=== PATIENT | female | born 2000 | race Caucasian/White ===

== ENCOUNTER 2023-03-06 09:35 | Emergency (ER) | payer BC ==
[~2023-03-06] VITALS: Ht 177.8 cm; Wt 75.0 kg
[2023-03-06 11:17] VITALS: TEMP 98.4
[2023-03-06 12:44] VITALS: BP 104/64; PULSE 89; RESP 17; O2SAT 100
== END 2023-03-06 13:50 | disposition home or self-care (01) ==
LOC: ER 09:35
DX: M79.605 Pain in left leg (principal); Z79.899 Other long term (current) drug therapy
CPT/HCPCS: 93971; 99284

== ENCOUNTER 2023-04-10 00:17 | Emergency (ER) | payer BC ==
[~2023-04-10] VITALS: Ht 177.8 cm; Wt 65.9 kg
[2023-04-10 00:54] LABS: HEMATOCRIT 43.1 % (35.0-45.0); HEMOGLOBIN 14.3 g/dl (12.0-16.0); MEAN CORPUSCULAR HEMOGLOBIN 28.3 PG (27.0-31.0); MEAN CORPUSCULAR HGB CONC 33.1 g/dL (33.0-36.5); MEAN CORPUSCULAR VOLUME 85.6 FL (78-98); MEAN PLATELET VOLUME 8.7 FL (7.4-10.4); PLATELET COUNT 258 X10'3 (140-440); RED BLOOD COUNT 5.04 X10'6 (4.20-5.60); RED CELL DISTRIBUTION WIDTH 14.1 % (11.5-14.5); WHITE BLOOD COUNT 8.1 X10'3 (4.5-11.0)
[2023-04-10] MEDS ORDERED: ibuprofen tablet 400 MG TABLET PO ONE (01:10)
[2023-04-10 01:15] LABS: ALANINE AMINOTRANSFERASE 19 U/L (12-78); ALBUMIN 4.5 G/DL (3.4-5.0); ALBUMIN/GLOBULIN RATIO 1.3 (1.1-1.5); ALKALINE PHOSPHATASE 88 IU/L (46-116); ANION GAP 12 (8-16); ASPARTATE AMINO TRANSFERASE 18 U/L (10-37); BILIRUBIN,TOTAL 0.2 MG/DL (0.1-1.0); BLOOD UREA NITROGEN 13 MG/DL (7-18); BUN/CREATININE RATIO 16.9 (10.0-20.0); CALCIUM 9.6 MG/DL (8.5-10.1); CHLORIDE 102 MMOL/L (99-107); CREATININE 0.77 MG/DL (0.40-0.90); GLUCOSE 96 MG/DL (70-104); PRO BRAIN NATRIURETIC PEPTIDE 96 PG/ML (0-125); SODIUM 139 MMOL/L (135-145); TOTAL CARBON DIOXIDE 25.4 MMOL/L (24-32); TOTAL PROTEIN 7.9 G/DL (6.4-8.2); eCRCL 120 ML/MIN; eGFR > 90 ML/MIN
[2023-04-10] MEDS ORDERED: ibuprofen 200mg tablet PO ONE (01:15)
[2023-04-10] MEDS ORDERED: potassium CL 10mEq/100ml bag 100 ML IV SCH (01:25)
[2023-04-10] MEDS ORDERED: potassium Cl 20 mEq SR tablet PO STA (01:25)
[2023-04-10] MEDS ORDERED: normal saline 1000ml 1,000 ML IV ONE (01:25)
[2023-04-10 01:39] LABS: TOTAL CELLS COUNTED 100
[2023-04-10 01:40] LABS: PLATELET ESTIMATE NORMAL
[2023-04-10 01:43] LABS: ELLIPTOCYTES 2+; POIKILOCYTOSIS 2+; TEAR DROP CELLS 2+
[2023-04-10 03:08] VITALS: BP 107/74; PULSE 64; RESP 16; TEMP 98.6; O2SAT 99
== END 2023-04-10 03:10 | disposition home or self-care (01) ==
LOC: ER 00:18
DX: R07.89 Other chest pain (principal); E87.6 Hypokalemia
CPT/HCPCS: 36415; 71045; 80053; 83880; 84484; 85007; 85025; 93005; 96365; 99285; J3480; J7030; J7120

== ENCOUNTER 2025-05-13 10:05 | Emergency (ER) | payer BC, OTHER ==
[~2025-05-13] VITALS: Ht 177.8 cm; Wt 63.6 kg
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
[2025-05-13] MEDS ORDERED: ONDA-243 PO (11:02)
[2025-05-13] MEDS: ondansetron 4mg rapidly disintigrating tab PO ONE (11:21)
[2025-05-13 11:36] VITALS: BP 126/84; PULSE 94; RESP 16; TEMP 97.2; O2SAT 98
== END 2025-05-13 11:46 | disposition home or self-care (01) ==
LOC: ER 10:06
DX: S06.0X0A Concussion without loss of consciousness, initial encounter (principal); W22.03XA Walked into furniture, initial encounter; Y93.89 Activity, other specified; Y92.89 Other specified places as the place of occurrence of the external cause; Y99.8 Other external cause status
CPT/HCPCS: 99283